=== PATIENT | female | born 1975 | race Hispanic/Latino ===

== ENCOUNTER 2016-10-28 10:10 | Day surgery (SDC) | payer OTHER ==
[2016-10-28 10:27] VITALS: BMI 19.3
[2016-10-28 11:10] LABS: HEMATOCRIT 42.6 % (34.0-47.0); MEAN CELL VOLUME 90.2 fl (81.0-99.0); MEAN CORPUSCULAR HEMOGLOBIN 30.6 pg (27.0-31.0); RED CELL DISTRIBUTION WIDTH 12.7 % (11.5-14.5); WHITE BLOOD COUNT 8.9 K/uL (4.8-10.8)
[2016-10-28] MEDS ORDERED: Midazolam 2 MG/2 ML VIAL ONE (13:01)
[2016-10-28] MEDS ORDERED: Rocuronium 10 mg/ml (5 ml) ONE (13:01)
[2016-10-28] MEDS ORDERED: ePHEDrine 50 mg/ml Inj ONE (13:01)
[2016-10-28] MEDS ORDERED: Propofol 10 mg/ml Inj (20 ML) ONE (13:01)
[2016-10-28] MEDS ORDERED: Succinylcholine 200 mg/10 ml Inj IV ONE (13:01)
[2016-10-28] MEDS ORDERED: Bupivacaine 0.5% Inj(30mL) ONE (13:16)
[2016-10-28] MEDS ORDERED: Lactated Ringer's 1,000 ML IV ONE ×2 (13:45→13:50)
[2016-10-28] MEDS ORDERED: Neostigmine Methylsulfate 3mg/3ml Syringe IV ONE (15:05)
[2016-10-28] MEDS ORDERED: Neostigmine Methylsulfate 2 MG/2 ML ML IV ONE (15:05)
[2016-10-28] MEDS ORDERED: HYDROmorphone 0.5 mg/0.5 ml ISec IVP PRN (15:48)
[2016-10-28] MEDS ORDERED: Oxycodone/Acetaminophen 5/325 mg Tab PO PRN (15:54)
[2016-10-28 17:49] VITALS: RESP 18
[2016-10-28 19:42] VITALS: BP 110/72; PULSE 65; TEMP 97.8; O2SAT 97
--- NOTE | 2016-11-08 16:42 | OP ---
PROCEDURE DATE: 10/28/2016 SURGEON: Wagner Quiles MD FRUIT COORDINATOR: JARRETT Perez PREOPERATIVE DIAGNOSES: Pelvic pain, dysmenorrhea, dyspareunia, adenomyosis, rule out endometriosis. POSTOPERATIVE DIAGNOSES: Pelvic pain, dysmenorrhea, dyspareunia, adenomyosis, rule out endometriosis. PROCEDURE PERFORMED: Cystoscopy with bilateral ureteral retrograde catheterization and injection of ICG dye, hysteroscopy, laparoscopy, robotic excision and ablation of endometriosis. ANESTHESIA: General endotracheal. ESTIMATED BLOOD LOSS: Minimal. COMPLICATIONS: None. BRIEF HISTORY: The patient is a 40-year-old who presented with a long history of dysmenorrhea, dyspareunia, pelvic pain and excessive uterine bleeding. Upon examination in the office, exquisite tenderness was elicited under direct visualization and under ultrasound examination. Ultrasound examination also revealed extensive presence of anterior uterine adenomyosis with displacement of the uterine cavity. Prior to the surgery, the patient was counseled to the risks and benefits of the procedure. Prior to the surgery, the consent of the procedure identifying the cause of the surgery, the likelihood of a successful outcome and alternative modalities of treatment and potential risks were freely discussed with ample opportunity for the patient to ask receive answers to the questions. The patient was counseled and demonstrated an understanding of the potential risks of the procedures including but not limited to bleeding, hemorrhage, infection, sepsis, injury to the urethra or the bladder, kidney, ureter leak, stent malfunction, uterine perforation, bowel perforation, infection and pelvic abscess. DESCRIPTION OF PROCEDURE: After adequate anesthesia was obtained, the patient was brought to the operating room and placed on the operating table in the supine position. An intravenous catheter was started and antibiotic was administered. After satisfactory anesthesia was induced, the patient was placed in dorsal lithotomy position. The patient was in stable cardiac and pulmonary parameters and disposition and all areas prone to pressure or injury were padded. The external genitalia was sterilely prepped and draped in a standard fashion as well as the abdomen. The camera was performed. The cystoscope was introduced in the bladder under direct vision. Pancystoscopy was performed and attention was paid to both ureteral orifices, which were in normal anatomic position. The left ureteral orifice was catheterized with a [place] [employer] open-ended ureteral catheter. A solution of ICG was then injected for a total of 4 mm into the left ureter after urethral catheter was advanced into the distal ureter. The ureteral catheter was then removed. Attention was paid to the right ureteral orifice. At this point, a ureteral catheter was advanced to the level of the right distal ureter. An additional 4 mL IC-Green were injected into the right ureter. The ureteral catheter was then removed. The bladder was inspected and noted to be free of tumor, stones or bleeding sources. There was a small amount of cystitis cystica in the opening of the urethra. At this point, the cyst was removed and a 16 [place] [employer] Wheeler catheter was placed. Attention was in the vaginal area where the speculum was placed in the vagina and the lip of the cervix was grasped. The uterus was dilated and a hysteroscope was inserted in the uterine cavity revealing a cavity of a normal size and appearance. There were no distortions in the cavity. Both ostia were seen. The cavity was free of polyps or fibroid tumors. There was no evidence of adenomyosis pointing to the cavity. At this point, a uterine manipulator was placed into the uterus and attention was on the abdomen. After re-gloving, an incision was made in the umbilicus with a standard open laparoscopy technique. The abdominal cavity was entered in a blunt fashion with a blunt trocar. The abdomen was insufflated and after insufflating the abdominal cavity , under direct visualization, 3 additional trocars were inserted, right lower quadrant, left mid quadrant, and right upper quadrant. At this point, the da Clotilde Xi robot was brought into the field. The da Clotilde robot procedure was commenced. The findings were of multiple areas of peritoneal inflammation on the pelvic sidewalls and the posterior aspect of the cervix. Most of the inflammatory area was on the left hand side. The uterus was asymmetrical and boggy with the anterior half appearing adenomyotic. At this point, utilizing fluorescent technology, the ureter was identified on the left hand side, the retroperitoneal space was entered. The ureter was progressively dissected and and lateralized and an area of peritoneum which was inflamed and suspected of endometriosis was excised. At this point, attention was on the posterior aspect of the cervix where again an area of peritoneum containing inflammatory looking peritoneum was also excised. Bipolar coagulation was also used in the posterior cul-de-sac to ablate the areas of inflammatory peritoneum. At this point, both ovaries were inspected and appeared to be normal. The fallopian tubes were normal. The anterior part of the bladder and the uterus also appeared to be normal. At this point, the pelvis was abundantly irrigated. Hemostasis appeared to be excellent. The ureter and the lateral vessels appeared to be in perfect condition without any perforations or devascularization. At this point, the da Clotilde robot was undocked. The abdomen was desufflated and the instruments were removed. The incision was closed in layers using 0 PDS for the fascia and 4-0 Monocryl for the skin. At the end of the procedure, all tapes and instrument counts were correct. The patient tolerated the procedure well and was taken to recovery in excellent condition. Wagner Quiles MD cc: [id number] TT: 11/08/2016 16:41:08 traci BRUNO
== END 2016-10-28 20:28 | disposition home or self-care (01) ==
LOC: H.OPSURG 10:10
PROVIDERS: ATTEND Obstetrics & Gynecology Reproductive Endocrinology
DX: N80.3 Endometriosis of pelvic peritoneum (principal); R10.2 Pelvic and perineal pain; N94.6 Dysmenorrhea, unspecified; N94.10 Unspecified dyspareunia